=== PATIENT | male | born 1970 | race Asian ===

== ENCOUNTER → 2024-03-17 13:12 | Outpatient (REF) | payer BC, SELFPAY | LOC: HWRAD 13:12 | PROVIDERS: ATTENDING PHYSICIAN Internal Medicine | DX: M54.2 Cervicalgia (principal) | CPT/HCPCS: 76536 ==

== ENCOUNTER → 2024-09-24 10:35 | Outpatient (REF) | payer BC, SELFPAY | LOC: RAD 10:35 | PROVIDERS: ATTENDING PHYSICIAN Family Medicine | DX: D23.72 Other benign neoplasm of skin of left lower limb, including hip (principal) | CPT/HCPCS: 73552 ==